=== PATIENT | female | born 1980 | race Caucasian/White ===

== ENCOUNTER 2020-07-30 13:42 | Emergency (ER) | payer OTHER, SELFPAY ==
[2020-07-30] VITALS (12 sets, daily range): BP systolic 124–158; BP diastolic 52–95; PULSE 77–114; RESP 10–23; TEMP 36.6; O2SAT 95–99; BMI 32.7
--- NOTE | 2020-07-30 13:47 | EKG12_ITS ---
Test Reason : FELL Blood Pressure : / mmHG Vent. Rate : 115 BPM Atrial Rate : 115 BPM P-R Int : 114 ms QRS Dur : 072 ms QT Int : 318 ms P-R-T Axes : 057 007 038 degrees QTc Int : 439 ms Sinus tachycardia Nonspecific ST and T wave abnormality Abnormal ECG Confirmed by CHRIS JONES, GREYSON ([id number]), newspaper editor CLAUDIA CRISTOBAL ([id number]) on 08/03/2020 10:16:00 AM Referred By: BETHANY Confirmed By:GREYSON PEREZ MD
--- NOTE | 2020-07-30 13:47 | CT_ITS ---
STUDY: CT HEAD STROKE PROTOCOL W/O CONTRAST INJECTION REASON FOR EXAM: Female, 40 years old. Neuro deficit, acute, stroke suspected RADIATION DOSAGE (If Supplied By Facility): CTDIvol = ( 38.43 ) mGy, DLP = ( 698.28 ) mGycm TECHNIQUE: Transaxial CT imaging of the brain was performed without administration of intravenous contrast material. Individualized dose optimization techniques were used for this CT. COMPARISON: No relevant priors. FINDINGS: Normal soft tissue structures. Normal calvarium. Normal size ventricles and extra-axial spaces for the patient''s age. There is a 1.6 cm x 1 cm focus of intracerebral hemorrhage in the convexity of the left parietal lobe superiorly. There is surrounding edema and mass effect. Normal basal ganglia and thalami. Normal brainstem. Normal cerebellum. Normal visualized paranasal sinuses. CT/STROKE Brain/Head without Cont IMPRESSION: 1.6 cm x 1 cm hemorrhagic focus in the medial superior aspect of the left parietal lobe with surrounding edema and mass effect. N.B. : The above information has been verbally conveyed by Marco A Davey MD to Jennifer Dick on 07/30/2020 14:13:52 (ET). Electronically Signed: Marco A Davey MD at 14:14 EDT , Service support ,
--- NOTE | 2020-07-30 13:48 | CT_ITS ---
STUDY: CTA HEAD AND NECK WITH CONTRAST REASON FOR EXAM: Female, 40 years old. Neuro deficit, acute, stroke suspected RADIATION DOSAGE (If Supplied By Facility): CTDIvol = ( 24.87 ) mGy, DLP = ( 1764.03 ) mGycm TECHNIQUE: CT angiography was performed with a multi-detector CT scanner. Data acquisition was obtained from the skull base through the vertex following intravenous administration of IV 100ML ISOVUE 370. MIP images were reconstructed from the axial data set. Post-processing of the angiographic images was performed, with multiplanar reformation and 3D reconstruction. Individualized dose optimization techniques were used for this CT. COMPARISON: No relevant priors. FINDINGS: Normal bilateral petrous carotid arteries. Normal right cavernous carotid artery with a normal supraclinoid bifurcation. Normal left cavernous carotid artery with a normal supraclinoid bifurcation. Normal right A1 segments of the anterior cerebral artery. Normal left A1 segments of the anterior cerebral artery. Normal intact anterior communicating artery (ACOM). Normal bilateral A2 segments of the anterior cerebral arteries. Normal right M1 and M2 segments of the middle cerebral arteries, with a normal M1 bifurcation. Normal left M1 and M2 segments of the middle cerebral arteries, with a normal M1 bifurcation. Normal right posterior communicating artery (PCOM). Normal left posterior communicating artery (PCOM). Normal bilateral vertebral arteries. Normal basilar artery with a normal basilar bifurcation. The visualized bilateral superior cerebellar (SCA) arteries are normal. Normal bilateral P1, P2 and visualized P3 segments of the posterior cerebral arteries. There is no demonstrated aneurysm of the [place]. There is no demonstrated abnormality of the visualized brain. AORTIC ARCH: Normal visualized aortic arch. Normal origins of the brachiocephalic, left common carotid, and left subclavian arteries. RIGHT CAROTID ARTERIES: Normal right common carotid artery (CCA). Normal right common carotid bulb. Normal origin of the right internal carotid (ICA) artery without a hemodynamically significant stenosis. Normal visualized cervical portion of the right internal carotid artery. Normal origin of the right external carotid artery (ECA). LEFT CAROTID ARTERIES: Normal left common carotid artery (CCA). Normal left common carotid bulb. Normal origin of the left internal carotid (ICA) artery without a hemodynamically significant stenosis. Normal visualized cervical portion of the left internal carotid artery. Normal origin of the left external carotid artery (ECA). VERTEBRAL ARTERIES: Normal bilateral vertebral arteries. CT/STROKE CTA Head AND Neck W/Con IMPRESSION: Normal CTA Head and neck with contrast. N.B. : The above information has been verbally conveyed by Marco A Davey MD to Jennifer Ciriloleon on 07/30/2020 14:20:11 (ET). Electronically Signed: Marco A Davey MD at 14:21 EDT , Service support ,
--- NOTE | 2020-07-30 13:49 | ED.VIS.STROK ---
HPI History of Present Illness Chief Complaint: Neuro S/Sx Informant: patient and EMS Narrative Narrative: Patient is a 40-year-old female denies any significant past medical history presenting after syncopal episode seizure activity. Patient was [place] skating rink when she suddenly lost consciousness. Patient remembers ice-skating and does not remember anything afterwards. Witnesses said that she had seizure-like activity. EMS arrived and felt that she was postictal. EMS did note that she was not moving the right side of her body. Patient states she still feels heavy on the right side and cannot move her right arm. She denies any history of stroke or seizures. She denies any family history of aneurysms or strokes. She denies any other complaints at this time. PFSH PFSH Home Medications NK 07/30/20 [History Last Taken Unknown] Allergy/AdvReac Type Severity Reaction Status Date / Time Sulfa (Sulfonamide Allergy Hives Verified 07/30/20 14:11 Antibiotics) Social History Smoking Status: Never smoker ROS ROS ED Constitutional Constitutional ED: Denies chills or fever(s) Eyes Eyes: Denies blurry vision or change in vision ENT ENT ED: Denies ear pain, rhinorrhea or sore throat Cardiovascular Cardiovascular: Denies chest pain or palpitations Respiratory/Chest Respiratory/Chest: Denies cough or dyspnea Gastrointestinal Gastrointestinal: Denies abdominal pain, diarrhea, nausea or vomiting Genitourinary Genitourinary ED: Denies dysuria Musculoskeletal Musculoskeletal: Denies arthralgias, myalgias or neck pain Neurologic Neurologic: Reports paresthesias and weakness EXAM Physical Exam Const Vital Signs: 07/30/20 13:43 07/30/20 13:47 07/30/20 14:17 Temperature 98 F Temperature Source Temporal Pulse Rate 113 H 114 H 96 Respiratory Rate 16 18 10 L Blood Pressure 158/73 H 136/92 H 140/95 H Blood Pressure Mean 101 106 110 Pulse Ox 99 98 95 Oxygen Delivery Method Room Air Room Air Room Air 07/30/20 14:22 07/30/20 14:37 07/30/20 14:52 Temperature Temperature Source Pulse Rate 97 91 77 Respiratory Rate 19 H 12 16 Blood Pressure 137/90 H 147/94 H 127/52 H Blood Pressure Mean 105 111 77 Pulse Ox 97 97 96 Oxygen Delivery Method Room Air Room Air Room Air 07/30/20 15:07 07/30/20 15:15 07/30/20 15:30 Temperature Temperature Source Pulse Rate 85 85 80 Respiratory Rate 17 14 20 H Blood Pressure 132/81 H 130/65 H 124/86 H Blood Pressure Mean 98 86 98 Pulse Ox 97 95 96 Oxygen Delivery Method Room Air Room Air Room Air 07/30/20 15:45 07/30/20 16:00 07/30/20 16:15 Temperature Temperature Source Pulse Rate 82 84 79 Respiratory Rate 20 H 23 H 16 Blood Pressure 135/91 H 142/84 H 137/90 H Blood Pressure Mean 105 103 105 Pulse Ox 97 99 98 Oxygen Delivery Method Room Air Room Air Room Air Positive well nourished and well developed General Appearance ED: well developed HEENT Reports moist mucous membranes atraumatic and trauma Nose: other Other Details: Questionable tongue laceration right side Eyes PERRL and EOMs intact bilaterally Neck no lymphadenopathy, supple and no JVD Neck Narrative: No step-off sign. Normal range of motion General: Negative for tenderness Chest Wall inspection of chest normal and palpation of chest normal Resp normal respiratory effort and clear to auscultation bilaterally Cardio Cardio Narrative: 2+ radial and DP pulses Rate: regular rate Rhythm: regular rhythm GI normal to inspection, nondistended, normoactive bowel sounds Extremity normal to inspection General Extremety ED: Negative for deformity, edema or tenderness General Extremity: Negative for deformity or edema Neuro oriented x3 and CN's II-XII intact bilaterally Neuro Narrative: Asymmetric weakness of the right side and decreased sensation on the right side Sensorium / Orientation: alert Speech: speech normal Psych mental status grossly normal Mood & Affect: anxious Skin no wounds Lesions: no lesions Rashes: no rashes STROKE Vital Signs/Narrative: Vital Signs Pulse Resp BP Pulse Ox 07/30/20 16:15 79 16 137/90 H 98 07/30/20 16:00 84 23 H 142/84 H 99 07/30/20 15:45 82 20 H 135/91 H 97 07/30/20 15:30 80 20 H 124/86 H 96 07/30/20 15:15 85 14 130/65 H 95 07/30/20 15:07 85 17 132/81 H 97 07/30/20 14:52 77 16 127/52 H 96 07/30/20 14:37 91 12 147/94 H 97 07/30/20 14:22 97 19 H 137/90 H 97 07/30/20 14:17 96 10 L 140/95 H 95 NIHSS Initial: 1a Level of Consciousness: 0 1b LOC Questions (Score 2 if aphasic/stupor): 0 1c LOC Commands (Only score 1st attempt): 0 2 Best Gaze (If aphasic, use reflexive mvmts.): 0 3 Visual: 0 4 Facial Palsy: 0 5 Motor Arm Right (UN = amputation/fusion): 2 5 Motor Arm Left: 0 6 Motor Leg Right: 1 6 Motor Leg Left: 0 7 Limb ataxia (Only + if out of proportion): 0 8 Sensory (Aphasia/stupor=0 or 1, coma=2): 1 9 Best Language: 0 10 Dysarthria (mute, coma=2, intubated=UN): 0 11 Extinction and Inattention (only scored if +): 0 Total Score: 4 MDM MDM MDM Narrative Medical decision making narrative: Patient evaluated for sudden onset of syncope and seizure activity afterwards. On arrival patient has persistent right-sided deficits. Stroke alert is called because of the persistent deficits. Her NIH is 4. CT shows a 1.16 x 1 cm hemorrhagic focus of the medial superior aspect of the left parietal lobe with surrounding edema and mass-effect. CT does not show any acute process. Case is discussed with radiology as well as stroke neurology at [facility], Dr. Travis. Is felt that likely patient has a hemorrhagic mass. Patient be transferred emergently to [facility] for further neurologic/neurosurgical care. Patient remains hemodynamically stable emergency room. She has no change in neurologic status while in the ER. She is protecting her airway. She is given 1 dose of labetalol for blood pressure control. Goal blood pressure is under 140 systolic. There was a slight delay in transfer because of weather but ultimately patient was able to go by critical care ground. Patient was informed of her findings and agreeable with this plan of care. Lab Data Labs: Laboratory Results - last 24 hr 07/30/20 07/30/20 07/30/20 13:48 14:04 14:04 WBC 8.2 RBC 4.16 L Hgb 12.0 Hct 36.5 L MCV 87.7 MCH 28.8 MCHC 32.9 RDW Std Deviation 41.1 RDW Coeff of Colten 12.8 Plt Count 246 MPV 11.1 Immature Gran % (Auto) 0.400 Neut % (Auto) 78.2 H Lymph % (Auto) 15.6 L [place] % (Auto) 4.7 Eos % (Auto) 0.5 Baso % (Auto) 0.6 Absolute Neuts (auto) 6.4 Absolute Lymphs (auto) 1.27 Nucleated RBC % 0 PT 13.4 INR 1.1 APTT 25.7 Sodium Potassium Chloride Carbon Dioxide Anion Gap BUN Creatinine Estim Creat Clear Calc Est GFR (MDRD) Af Amer Est GFR (MDRD) Non-Af BUN/Creatinine Ratio Glucose Calcium Troponin I POC Glucose 86 07/30/20 14:04 WBC RBC Hgb Hct MCV MCH MCHC RDW Std Deviation RDW Coeff of [place]ten Plt Count MPV Immature Gran % (Auto) Neut % (Auto) Lymph % (Auto) [place] % (Auto) Eos % (Auto) Baso % (Auto) Absolute Neuts (auto) Absolute Lymphs (auto) Nucleated RBC % PT INR APTT Sodium 132 L Potassium 4.4 Chloride 100 Carbon Dioxide 21.0 Anion Gap 11 BUN 13 Creatinine 1.00 Estim Creat Clear Calc 57.96 Est GFR (MDRD) Af Amer 78 Est GFR (MDRD) Non-Af 65 BUN/Creatinine Ratio 13.0 Glucose 83 Calcium 8.1 L Troponin I < 0.015 POC Glucose Radiography Diagnostic Testing: Radiology Impression Brain CT 07/30/20 13:47 IMPRESSION: 1.6 cm x 1 cm hemorrhagic focus in the medial superior aspect of the left parietal lobe with surrounding edema and mass effect. N.B. : The above information has been verbally conveyed by Marco A Davey MD to Jennifer Dick on 07/30/2020 14:13:52 (ET). Electronically Signed: Marco A Davey MD at 14:14 EDT , Service support , ADDENDUM: 07/30/20 1421 IMPRESSION: 1.6 cm x 1 cm hemorrhagic focus in the medial superior aspect of the left parietal lobe with surrounding edema and mass effect. N.B. : The above information has been verbally conveyed by Marco A Davey MD to Jennifer Dick on 07/30/2020 14:13:52 (ET). Electronically Signed: Marco A Davey MD at 14:14 EDT , Service support , Head/Neck CTA 07/30/20 13:48 IMPRESSION: Normal CTA Head and neck with contrast. N.B. : The above information has been verbally conveyed by Marco A Davey MD to Jennifer Dick on 07/30/2020 14:20:11 (ET). Electronically Signed: Marco A Davey MD at 14:21 EDT , Service support , ADDENDUM: 07/30/20 1428 IMPRESSION: Normal CTA Head and neck with contrast. N.B. : The above information has been verbally conveyed by Marco A Davey MD to Jennifer Dick on 07/30/2020 14:20:11 (ET). Electronically Signed: Marco A Davey MD at 14:21 EDT , Service support , Chest X-Ray 07/30/20 15:30 IMPRESSION: Normal x-ray examination of the chest. Electronically Signed: Connie Gudino MD at 15:44 EDT Tel , Service support , Stroke Documentation Questions Stroke Team Activated: Yes Reviewed Inclusion/Exclusion criteria: Yes Was Patient considered for Endovascular Intervention?: No IV Alteplase (t-PA) Administered: No No contraindications for IV Alteplase (t-PA) administration.: No Critical Care Time Critical care time (excluding procedures): 30-74 minutes (40), Discussing w/Patient &/or Family/Staking Technician, Discussing w/Consultants and Arranging Admission or Transfer Discharge Plan Triage Chief Complaint: Neuro S/Sx ED Provider: Jennifer Dick Dx/Rx/DC Orders Clinical Impression: Stroke due to intracerebral hemorrhage Prescriptions: No Action NK RF: 0 Primary Care Provider: Care Physician,No Primary Referrals: Care Physician,No Primary [Primary Care Provider] - Disposition Disposition: Acute Care Hospital Discharge Location: [facility] Discharge Date/Time: 07/30/20 16:36
[2020-07-30 13:55] LABS: Bedside Glucose 86 mg/dL (70-110)
[2020-07-30 14:10] LABS: Absolute Lymphocyte Count 1.27 X10^3/uL (0.83-4.51); Absolute Neutrophil Count 6.4 X10^3/uL (2.0-7.7); Basophil# 0.05 X10^3/uL; Basophil% 0.6 % (0-1); Eosinophil# 0.04 X10^3/uL; Eosinophils% 0.5 % (0-5); Hematocrit 36.5 % (37-47); Lymphocyte # 1.27 X10^3/ul (0.83-4.51); Lymphocyte % 15.6 % (19-41); Mean Corp Hgb Conc 32.9 g/dL (32-36); Mean Corpuscular Hgb 28.8 pg (27.0-32.0); Mean Corpuscular Volume 87.7 fL (81-99); Mean Platelet Vol. 11.1 fl (6.2-12.0); Monocyte# 0.38 X10^3/uL; Monocyte% 4.7 % (0-10); NRBC Flagged by Analyzer 0 % (0-5); Neutrophil # 6.39 X10^3/uL (2.7-7.7); Neutrophil % 78.2 % (47-70); Platelet Count 246 K/mm3 (150-450); RBC Distribution Width CV 12.8 % (11.6-14.6); RBC Distribution Width SD 41.1 fl (35.1-43.9); Red Blood Count 4.16 M/mm3 (4.2-5.4); White Blood Count 8.2 K/mm3 (4.4-11.0)
--- NOTE | 2020-07-30 14:13 | ED.RN ---
Pt keiko Palmer contacted by Officer Aaron Tsai, will be enroute
[2020-07-30 14:19] LABS: International Normalized Ratio 1.1; Prothrombin Time (Protime)PT. 13.4 SECONDS (11.7-14.9)
[2020-07-30 14:20] LABS: Partial Thromboplast Time 25.7 Seconds (24.1-36.2)
[2020-07-30 14:28] LABS: Anion Gap 11 (5-15); BUN 13 mg/dL (7-18); Calcium,Total 8.1 mg/dL (8.5-10.1); Chloride 100 mmol/L (98-107); EST Glomerular Filtration Rate 65 mL/min (>60); Est Glom Filt Rate - Afr Amer 78 mL/min (>60); Estimated Creatinine Clearance 57.96 ml/min; Glucose 83 mg/dL (74-106); Potassium 4.4 mmol/L (3.5-5.1); Sodium Level 132 mmol/L (136-145)
[2020-07-30] MEDS: Labetalol 100 MG/20 ML Vial 20 MG IV (14:51)
--- NOTE | 2020-07-30 15:30 | RAD_ITS ---
STUDY: X-RAY CHEST REASON FOR EXAM: Female, 40 years old. Neuro deficit, acute, stroke suspected TECHNIQUE: Single frontal view of the chest. COMPARISON: None. FINDINGS: The lungs are clear and expanded. There is no demonstrated pleural abnormality. Normal size heart. Normal mediastinum and nikhil. Normal visualized pulmonary arteries. Normal visualized aortic arch and descending thoracic aorta. Normal visualized thoracic spine. Normal visualized ribs, clavicles, and shoulders. There is no demonstrated abnormality of the visualized soft tissue structures of the upper abdomen. RAD/Chest 1 View IMPRESSION: Normal x-ray examination of the chest. Electronically Signed: Connie Gudino MD at 15:44 EDT Tel , Service support ,
--- NOTE | 2020-07-30 16:23 | CHAPLAIN ---
Type of Pastoral Visit ___ Initial Visit ___ Follow-up Visit ___ On-call Visit ___ General Patient Visit ___ Spiritual Assessment ___ Family Conference ___ Bereavement _x__ Rapid Response ___ Code Blue ___ Other (describe below) Pastoral Care Referral From ___ Patient ___ Family ___ Nurse ___ Physician ___ Nurse Educator ___ Chiropractic Practice Manager _x__ Other (describe below) Sacrament/Intervention ___ Active listening ___ Anointing ___ Methodist ___ Bereavement ___ Communion ___ Louann exploration ___ ___ Life review ___ Prayer ___ Reconciliation ___ Sacrament of Sick _x__ Supportive presence ___ Wedding ___ Other (describe below) Pastoral Comments responded to stroke alert; introduced self to patient and gave offer of presence and support; no family present and pt is about to be evaluated by [facility] on line
--- NOTE | 2020-07-30 16:25 | ED.RN ---
[facility] at bedside, report given.
== END 2020-07-30 16:36 | disposition short-term general hospital (02) ==
PROVIDERS: Emergency Provider Emergency Medicine
DX: I61.9 Nontraumatic intracerebral hemorrhage, unspecified (principal); R29.704 NIHSS score 4
CPT/HCPCS: 70450; 70496; 70498; 71045; 80048; 82962; 84484; 85025; 85610; 85730; 93005; 99285; Q9967; A4216